=== PATIENT | female | born 1965 | race American Indian/Alaskan Native ===

== ENCOUNTER 2018-09-30 11:35 | Emergency (ER) | payer SELFPAY ==
[2018-09-30 11:43] VITALS: BP 162/119
[2018-09-30] MEDS ORDERED: BENADRYL IV ONE (12:27)
[2018-09-30] MEDS ORDERED: SOLU-Medrol IV ONE (12:27)
[2018-09-30] MEDS ORDERED: ATARAX PO ONE (13:27)
--- NOTE | 2018-09-30 13:30 | Emergency Department Report ---
ED Rash HPI - HPI Chief Complaint: Skin Rash Stated Complaint: RASH Time Seen by Provider: 09/30/18 12:23 Suspected Cause: Other (detergent) Rash Symptoms: Yes Itching, No Facial Swelling, No Tongue/Oral Swelling, No [place] thing Difficulties, No Choking Sensation, No Wheezing/Dyspnea, No Peeling, No Blistering, No Fever, No Lightheaded, No Malaise, No Myalgias Severity: moderate Other History: This is a 51-year-old female presents to ED complaining of generalized itching rash all of her chest and arms. Patient states she remembers changing her laundry detergent using gain as she is usually uses all soap detergent. She said since about a week ago she started mild itching in and states that now its getting worse ED Review of Systems ROS: Stated complaint: RASH Other details as noted in HPI Comment: All other systems reviewed and negative Constitutional: denies: chills, fever Eyes: denies: eye pain, eye discharge, vision change ENT: denies: ear pain, throat pain Respiratory: denies: cough, shortness of breath, wheezing Cardiovascular: denies: chest pain, palpitations Endocrine: no symptoms reported Gastrointestinal: denies: abdominal pain, nausea, diarrhea Genitourinary: denies: urgency, dysuria, discharge Musculoskeletal: denies: back pain, joint swelling, arthralgia Skin: rash, change in color (erythematous), pruritus. denies: lesions Neurological: denies: headache, weakness, paresthesias Psychiatric: denies: anxiety, depression Hematological/Lymphatic: denies: easy bleeding, easy bruising ED Past Medical Hx - Past Medical History Previous Medical History?: Yes Hx Hypertension: Yes - Surgical History Past Surgical History?: No - Social History Smoking Status: Current Every Day Smoker Substance Use Type: None - Medications Home Medications: Home Medications Medication Instructions Recorded Confirmed Last Taken Type Pramoxine HCl/Calamine [Calamine 1 applic TP BID #1 lotion 09/30/18 Unknown Rx Medicated Lotion] Prednisone [predniSONE 10 mg 10 mg PO .TAPER #1 tab.ds.pk 09/30/18 Unknown Rx (6-Day Pack, 21 Tabs)] hydrOXYzine HCL [Atarax] 25 mg PO Q6HR PRN #40 tablet 09/30/18 Unknown Rx Rash Exam - Exam General: Vital signs noted. No distress. Alert and acting appropriately. HEENT: No Periorbital Edema, No Conjuctival Injection, No Chemosis, No Perioral Edema, No Tongue Edema, No Uvular Edema, No Compromised Airway, No Drooling Lungs: Yes Good Air Exchange (Normal Breath Sounds), No Wheezes, No Ronchi, No Stridor, No Cough, No Labored Respirations, No Retractions, No Use of Accessory Muscles, No Other Abnormal Lung Sounds Heart: Yes Regular, No Murmur Skin: Yes Urticarial Rash, Yes Maculopapular Rash, Yes Erythema, No Morbilliform rash, No Bulla(e), No Excoriations, No Weeping, No Tenderness, No Edema, No Encrustations, No Other Other: Positive: Abdomen Normal, Neurologic Normal, Musculoskeletal Normal ED Course Vital Signs 09/30/18 11:40 Temperature 97.8 F Pulse Rate 106 H Respiratory 16 Rate Blood Pressure 162/119 O2 Sat by Pulse 100 Oximetry ED Medical Decision Making - Medical Decision Making 53-year-old female presents with moderate allergic reaction Patient received IV 1 L normal saline, Benadryl, 125 Solu-Medrol. Patient was better so patient also received Atarax and 1 mg of Haldol. Patient is reports that H and is mildly resolved. Discussed the patient was sent home on Atarax and a short course of steroids. Vital signs are normal patient is no acute distress or respiratory distress. Patent airways. Discussed additional follow-up. Per minute temperature physician. Critical care attestation.: If time is entered above; I have spent that time in minutes in the direct care of this critically ill patient, excluding procedure time. ED Disposition Clinical Impression: Rash, Allergic urticaria Disposition: [id number] TO HOME OR SELFCARE Is pt being admited?: No Does the pt Need Aspirin: No Condition: Stable Instructions: Contact Dermatitis (ED), Urticaria (ED) Additional Instructions: Make sure to follow up with the primary care physician as discussed. Take all your medications as you've been prescribed. If you have any worsening symptoms or develop new symptoms please return to ED immediately. Prescriptions: hydrOXYzine HCL [Atarax] 25 mg PO Q6HR PRN #40 tablet PRN Reason: Itching Pramoxine HCl/Calamine [Calamine Medicated Lotion] 1 applic TP BID #1 lotion Prednisone [predniSONE 10 mg (6-Day Pack, 21 Tabs)] 10 mg PO .TAPER #1 tab.ds.pk Referrals: PRIMARY CARE, [Primary Care Provider] - 3-5 Days PAULETTE LAGOS MD [Referring] - 3-5 Days RICKEY OGDEN MD [Staff Physician] - 3-5 Days [facility] [Provider Group] - 3-5 Days Forms: Accompanied Note, Work/School Release Form(ED)
[2018-09-30] MEDS ORDERED: NACL 0.9% 1000 ML 1,000 ML IV ONE (14:04)
[2018-09-30] MEDS ORDERED: PEPCID IV ONE (15:11)
[2018-09-30] MEDS ORDERED: HALDOL PO ONE (16:00)
== END 2018-09-30 16:07 | disposition home or self-care (01) ==
LOC: ED 11:35
DX: L50.0 Allergic urticaria (principal); I10 Essential (primary) hypertension; F17.200 Nicotine dependence, unspecified, uncomplicated
CPT/HCPCS: 96374; 96375; 99282; J1200; J2930; J7030